=== PATIENT | female | born 1995 | race Caucasian/White ===

== ENCOUNTER 2019-06-09 18:06 | Inpatient (IN) ==
[2019-06-09] MEDS ORDERED: Famotidine 20 MG/2 ML VIAL IVP PRN (18:16)
[2019-06-09] MEDS ORDERED: Naloxone 0.4 MG/ML INJ IVP PRN (18:16)
[2019-06-09] MEDS ORDERED: Metoclopramide 10 MG/2 ML VIAL IVP PRN ×2 (18:16→23:57)
[2019-06-09] MEDS ORDERED: Clindamycin 900 MG/50 ML 900 MG/50 ML IV.SOLN IVPB ONE (19:10)
[2019-06-09] MEDS: Ringers Solution, Lactated 1,000 ML IVC SCH ×2 (19:21→20:14)
[2019-06-09 19:29] LABS: Amphetamine Screen,Urine Negative ng/mL (Cutoff=1000); Barbiturate Screen,Urine Negative ng/mL (Cutoff=200); Basophils % 0.1 %; Benzodiazepines Screen,Urine Negative ng/mL (Cutoff=200); Cannabinoid Screen,Urine Negative ng/mL (Cutoff = 50); Cocaine Screen,Urine Negative ng/mL (Cutoff= 300); Eosinophils # 0.1 K/mcL (0.0-0.6); Eosinophils % 0.5 %; Hematocrit 38.8 % (35.3-44.9); Hemoglobin 12.1 g/dL (11.5-15.4); Immature Granulocytes % 0.5 % (0-4); Lymphocytes # 3.8 K/mcL (0.6-4.6); Lymphocytes % 26.2 %; Mean Corpuscular HGB Conc 31.2 g/dL (31.6-35.5); Mean Corpuscular Hemoglobin 25.1 pg (28.0-33.3); Mean Corpuscular Volume 80.5 fL (83.0-100.0); Mean Platelet Volume 10.7 fL (9.4-12.4); Monocytes % 7.1 %; Neutrophils # 9.5 K/mcL (1.6-8.9); Opiate Screen,Urine Negative ng/mL (Cutoff=300); Phencyclidine Screen,Urine Negative ng/mL (Cutoff=25); Platelet Count 308 K/mcL (140-400); Red Blood Count 4.82 M/mcL (3.82-4.97); Red Cell Distribution Width 14.8 % (11.5-14.5); Segmented Neutrophils % 65.6 %; White Blood Count 14.6 K/mcL (4.3-11.1)
[2019-06-09] MEDS ORDERED: EPHEDrine 50 MG/ML VIAL ONE (19:30)
[2019-06-09] MEDS ORDERED: *HR* OxyCODONE/APAP 5/325 TABLET PO PRN (19:30)
[2019-06-09] MEDS ORDERED: Morphine Sulfate 2 MG/ML SYRINGE IVP PRN (19:30)
[2019-06-09] MEDS ORDERED: *HR* Morphine Sulfate/PF 10 MG/10 ML AMPUL ONE (19:30)
[2019-06-09] MEDS ORDERED: Ibuprofen 400 MG TABLET PO PRN (19:30)
[2019-06-09] MEDS ORDERED: *HR* FentaNYL (PF) 100 MCG/2 ML VIAL ONE (19:30)
[2019-06-09] MEDS ORDERED: Ondansetron 4 MG/2 ML VIAL IVP PRN ×2 (19:30→23:57)
[2019-06-09] MEDS ORDERED: *HR* Oxytocin 10 UNIT/ML VIAL IM ONE (19:30)
[2019-06-09] MEDS ORDERED: *HR* Promethazine 25 MG/ML VIAL IVP PRN (19:32)
[2019-06-09] MEDS ORDERED: Oxytocin 20 units/ LR 1000 mL 20 UNIT/1,000 ML BAG IVC ONE ×2 (20:22→23:24)
[2019-06-09] MEDS ORDERED: Ondansetron 4 MG/2 ML VIAL ONE (21:40)
[2019-06-09] MEDS ORDERED: Acetaminophen IV 1,000 MG/100 ML INFUS..BTL IVPB ONE (22:52)
[2019-06-09] MEDS ORDERED: Ringers Solution, Lactated 1,000 ML IVC SCH (23:57)
[2019-06-09] MEDS ORDERED: Sennosides 8.6 MG TABLET PO PRN (23:57)
[2019-06-09] MEDS ORDERED: Simethicone 80 MG TAB.CHEW PO PRN (23:57)
[2019-06-09] MEDS ORDERED: Oxytocin 20 units/ LR 1000 mL 20 UNIT/1,000 ML BAG IVC SCH (23:57)
[2019-06-09] MEDS ORDERED: Rho Immune Globulin 1,500 UNIT SYRINGE IM ONE (23:57)
[2019-06-10] MEDS: Ibuprofen 600 MG TABLET PO PRN ×2 (06:41→17:26)
[2019-06-10 07:46] LABS: Basophils % 0.2 %; Eosinophils # 0.1 K/mcL (0.0-0.6); Eosinophils % 0.5 %; Hematocrit 31.6 % (35.3-44.9); Immature Granulocytes % 0.2 % (0-4); Lymphocytes # 3.4 K/mcL (0.6-4.6); Lymphocytes % 26.1 %; Mean Corpuscular HGB Conc 30.4 g/dL (31.6-35.5); Mean Corpuscular Hemoglobin 25.2 pg (28.0-33.3); Mean Corpuscular Volume 82.9 fL (83.0-100.0); Mean Platelet Volume 10.8 fL (9.4-12.4); Monocytes # 0.9 K/mcL (0.0-1.3); Monocytes % 6.9 %; Neutrophils # 8.7 K/mcL (1.6-8.9); Platelet Count 232 K/mcL (140-400); Red Blood Count 3.81 M/mcL (3.82-4.97); Red Cell Distribution Width 14.8 % (11.5-14.5); Segmented Neutrophils % 66.1 %; White Blood Count 13.1 K/mcL (4.3-11.1)
[2019-06-10 07:47] LABS: Hemoglobin 9.6 g/dL (11.5-15.4)
[2019-06-10 08:58] LABS: eGFR For African Americans > 60 (> 60); eGFR For Non-African Americans > 60 (> 60)
[2019-06-10] MEDS: Prenatal Vit/FA 1 EACH TABLET PO SCH (09:24)
[2019-06-10] MEDS: *HR* OxyCODONE/APAP 5/325 TABLET PO PRN ×3 (10:17→21:19)
[2019-06-11] MEDS: Ibuprofen 600 MG TABLET PO PRN ×2 (02:18→08:06)
[2019-06-11] MEDS: *HR* OxyCODONE/APAP 5/325 TABLET PO PRN ×2 (06:17→12:44)
[2019-06-11 07:51] VITALS: BP 115/77
[2019-06-11] MEDS: Prenatal Vit/FA 1 EACH TABLET PO SCH (07:58)
== END 2019-06-11 16:44 | disposition home or self-care (01) | DRG 788 ==
LOC: 1NENULAB 18:06 → 1NENUOBS 23:54
PROVIDERS: ADMIT Obstetrics & Gynecology; ATTEND Obstetrics & Gynecology

== ENCOUNTER 2020-09-09 12:58 | Observation (INO) ==
[2020-09-09] MEDS ORDERED: Naloxone 0.4 MG/ML INJ IVP PRN (13:24)
[2020-09-09] MEDS ORDERED: *HR* HYDROmorphone 2 MG/ML SYRINGE IVP PRN (13:25)
[2020-09-09] MEDS: Ringers Solution, Lactated 1,000 ML IVC SCH ×2 (14:06→22:43)
[2020-09-09 14:18] LABS: Basophils % 0.3 %; Eosinophils # 0.3 K/mcL (0.0-0.6); Eosinophils % 2.4 %; Hematocrit 40.6 % (35.3-44.9); Hemoglobin 12.5 g/dL (11.5-15.4); Immature Granulocytes % 0.3 % (0-4); Lymphocytes # 3.4 K/mcL (0.6-4.6); Lymphocytes % 30.1 %; Mean Corpuscular HGB Conc 30.8 g/dL (31.6-35.5); Mean Corpuscular Hemoglobin 25.2 pg (28.0-33.3); Mean Corpuscular Volume 81.9 fL (83.0-100.0); Mean Platelet Volume 9.2 fL (9.4-12.4); Monocytes # 1.2 K/mcL (0.0-1.3); Monocytes % 10.1 %; Neutrophils # 6.5 K/mcL (1.6-8.9); Platelet Count 377 K/mcL (140-400); Red Blood Count 4.96 M/mcL (3.82-4.97); Red Cell Distribution Width 14.6 % (11.5-14.5); Segmented Neutrophils % 56.8 %; White Blood Count 11.4 K/mcL (4.3-11.1)
[2020-09-09] MEDS: Ondansetron 4 MG/2 ML VIAL IVP PRN ×2 (16:03→22:36)
[2020-09-09 19:44] LABS: Amphetamine Screen,Urine Negative ng/mL (Cutoff=1000); Barbiturate Screen,Urine Negative ng/mL (Cutoff=200); Benzodiazepines Screen,Urine Negative ng/mL (Cutoff=200); Cannabinoid Screen,Urine Negative ng/mL (Cutoff = 50); Cocaine Screen,Urine Negative ng/mL (Cutoff= 300); Opiate Screen,Urine Positive ng/mL (Cutoff=300); Phencyclidine Screen,Urine Negative ng/mL (Cutoff=25)
[2020-09-09] MEDS ORDERED: *HR* Meperidine 50 MG/ML SYRINGE IVP PRN (21:25)
[2020-09-10] MEDS ORDERED: Ondansetron 4 MG/2 ML VIAL IVP PRN (04:44)
[2020-09-10] MEDS ORDERED: Ondansetron 4 MG/2 ML VIAL ONE (04:52)
[2020-09-10] MEDS ORDERED: *HR* FentaNYL (PF) 100 MCG/2 ML VIAL ONE ×3 (04:52→06:26)
[2020-09-10] MEDS ORDERED: Neostigmine Methylsulfate 3 MG/3 ML SYRINGE ONE (04:52)
[2020-09-10] MEDS ORDERED: *HR* Propofol 200 MG/20 ML VIAL IVP ONE ×2 (04:52→05:40)
[2020-09-10] MEDS ORDERED: *HR* Rocuronium Bromide 50 MG/5 ML VIAL ONE ×2 (04:52→05:40)
[2020-09-10] MEDS ORDERED: Clindamycin 900 MG/50 ML 900 MG/50 ML IV.SOLN IVPB ONE (05:32)
[2020-09-10] MEDS: *HR* HYDROmorphone PF 0.5 MG/0.5 ML SYRINGE IVP PRN ×2 (07:21→07:30)
[2020-09-10] MEDS: Ondansetron 4 MG/2 ML VIAL IVP PRN (08:32)
[2020-09-10] MEDS ORDERED: *HR* OxyCODONE/APAP 5/325 TABLET PO ONE (08:32)
[2020-09-10 12:41] VITALS: BP 106/68; PULSE 86; TEMP 98.2; O2SAT 95
== END 2020-09-10 14:38 | disposition home or self-care (01) ==
LOC: 1NENUOBS
PROVIDERS: ADMIT Obstetrics & Gynecology; ATTEND Obstetrics & Gynecology

== ENCOUNTER 2021-06-19 09:14 | Inpatient (IN) ==
[2021-06-19] MEDS ORDERED: Lidocaine -MPF 2% 5 ML VIAL ONE ×2 (10:37→12:58)
[2021-06-19] MEDS ORDERED: Metoclopramide 10 MG/2 ML VIAL IVP PRN ×2 (10:42→16:45)
[2021-06-19] MEDS ORDERED: Famotidine 20 MG/2 ML VIAL IVP PRN (10:42)
[2021-06-19] MEDS ORDERED: Azithromycin 500 MG in 0.9 % Sodium Chloride 250 ML IVPB PRN (10:42)
[2021-06-19] MEDS ORDERED: Naloxone 0.4 MG/ML INJ IVP PRN ×2 (10:42→16:45)
[2021-06-19] MEDS ORDERED: Ringers Solution, Lactated 1,000 ML IVC SCH (10:45)
[2021-06-19 11:16] LABS: Basophils % 0.2 %; Eosinophils # 0.1 K/mcL (0.0-0.6); Eosinophils % 1.1 %; Hematocrit 36.1 % (35.3-44.9); Hemoglobin 11.5 g/dL (11.5-15.4); Immature Granulocytes % 0.4 % (0-4); Lymphocytes % 24.3 %; Mean Corpuscular HGB Conc 31.9 g/dL (31.6-35.5); Mean Corpuscular Hemoglobin 23.7 pg (28.0-33.3); Mean Corpuscular Volume 74.4 fL (83.0-100.0); Mean Platelet Volume 10.6 fL (9.4-12.4); Monocytes # 1.1 K/mcL (0.0-1.3); Monocytes % 8.7 %; Neutrophils # 8.1 K/mcL (1.6-8.9); Platelet Count 333 K/mcL (140-400); Red Blood Count 4.85 M/mcL (3.82-4.97); Red Cell Distribution Width 17.3 % (11.5-14.5); Segmented Neutrophils % 65.3 %; White Blood Count 12.3 K/mcL (4.3-11.1)
[2021-06-19 11:39] LABS: Creatinine,Urine 161 mg/dL; Protein/Creatinine Ratio,Urine 0.18 mg/mg (0.00-0.20)
[2021-06-19 11:45] LABS: Alanine Aminotransferase 8 Units/L (7-52); Aspartate Amino Transferase 11 Units/L (13-39); BUN/Creatinine Ratio 20 (6-26); Blood Urea Nitrogen 9 mg/dL (6-20); Lactate Dehydrogenase 116 Units/L (140-271); Uric Acid 4.1 mg/dL (2.3-7.6); eGFR For African Americans > 60 (> 60); eGFR For Non-African Americans > 60 (> 60)
[2021-06-19] MEDS ORDERED: Oxytocin 30 UNIT/503 ML BAG IVC ONE (12:14)
[2021-06-19] MEDS ORDERED: CeFAZolin 2,000 MG/120 ML BAG IVPB ONE (12:33)
[2021-06-19] MEDS ORDERED: Clindamycin 900 MG/50 ML 900 MG/50 ML IV.SOLN IVPB ONE (12:38)
[2021-06-19] MEDS ORDERED: Promethazine 6.25 MG in Water for inj. (sterile) 20 ML IVPB PRN (12:48)
[2021-06-19] MEDS ORDERED: Ondansetron 4 MG/2 ML VIAL IVP PRN ×2 (12:48→16:45)
[2021-06-19] MEDS ORDERED: *HR* HYDROmorphone (PF) 1 MG/ML SYRINGE IVP PRN (12:48)
[2021-06-19] MEDS ORDERED: *HR* FentaNYL (PF) 100 MCG/2 ML VIAL ONE (12:56)
[2021-06-19] MEDS ORDERED: *HR* Propofol 200 MG/20 ML VIAL IVP ONE (12:56)
[2021-06-19] MEDS ORDERED: *HR* Succinylcholine 200 MG/10 ML VIAL IVP ONE (12:57)
[2021-06-19] MEDS ORDERED: Acetaminophen IV 1,000 MG/100 ML BAG IVPB ONE (13:24)
[2021-06-19] MEDS ORDERED: *HR* Rocuronium Bromide 50 MG/5 ML VIAL ONE (13:24)
[2021-06-19] MEDS ORDERED: Ondansetron 4 MG/2 ML VIAL ONE (13:24)
[2021-06-19] MEDS ORDERED: Ketorolac 30 MG/ML VIAL ONE (13:24)
[2021-06-19] MEDS ORDERED: *HR* HYDROMORPHONE 2 MG/ML VIAL ONE (13:39)
[2021-06-19] MEDS ORDERED: Ringers Solution, Lactated 1,000 ML ONE (13:59)
[2021-06-19] MEDS ORDERED: OXYTOCIN/RINGERS LACTATE 10 UNIT/166.6 ML BAG IVC ONE (16:45)
[2021-06-19] MEDS ORDERED: Rho Immune Globulin 1,500 UNIT SYRINGE IM ONE (16:45)
[2021-06-19] MEDS: Ibuprofen 600 MG TABLET PO SCH ×2 (17:00→22:44)
[2021-06-19 17:29] LABS: Amphetamine Screen,Urine Negative ng/mL (Cutoff=1000); Barbiturate Screen,Urine Negative ng/mL (Cutoff=200); Benzodiazepines Screen,Urine Negative ng/mL (Cutoff=200); Cannabinoid Screen,Urine Negative ng/mL (Cutoff = 50); Cocaine Screen,Urine Negative ng/mL (Cutoff= 300); Opiate Screen,Urine Negative ng/mL (Cutoff=300); Phencyclidine Screen,Urine Negative ng/mL (Cutoff=25)
[2021-06-19] MEDS: *HR* OxyCODONE Immed Rel 5 MG TABLET PO PRN ×2 (17:46→23:21)
[2021-06-19] MEDS: Ringers Solution, Lactated 1,000 ML IVC SCH (18:34)
[2021-06-19] MEDS: Acetaminophen 325 MG TABLET PO SCH (20:34)
[2021-06-20] MEDS: Acetaminophen 325 MG TABLET PO SCH ×4 (02:59→18:16)
[2021-06-20 04:14] LABS: Basophils % 0.2 %; Eosinophils % 0.1 %; Hematocrit 28.7 % (35.3-44.9); Hemoglobin 8.9 g/dL (11.5-15.4); Immature Granulocytes % 0.4 % (0-4); Mean Corpuscular Hemoglobin 23.6 pg (28.0-33.3); Mean Corpuscular Volume 76.1 fL (83.0-100.0); Mean Platelet Volume 10.4 fL (9.4-12.4); Monocytes # 1.4 K/mcL (0.0-1.3); Monocytes % 8.6 %; Neutrophils # 12.2 K/mcL (1.6-8.9); Platelet Count 308 K/mcL (140-400); Red Blood Count 3.77 M/mcL (3.82-4.97); Red Cell Distribution Width 17.2 % (11.5-14.5); Segmented Neutrophils % 72.7 %; White Blood Count 16.8 K/mcL (4.3-11.1)
[2021-06-20] MEDS: Ibuprofen 600 MG TABLET PO SCH ×3 (05:20→18:16)
[2021-06-20] MEDS: *HR* OxyCODONE Immed Rel 5 MG TABLET PO PRN ×4 (05:31→20:56)
[2021-06-20] MEDS: Prenatal Vit/FA 1 EACH TABLET PO SCH (09:36)
[2021-06-20] MEDS: Ringers Solution, Lactated 1,000 ML IVC SCH (09:38)
[2021-06-20] MEDS: Simethicone 80 MG TAB.CHEW PO PRN (09:39)
[2021-06-20] MEDS: FLUoxetine 20 MG CAPSULE PO SCH (09:39)
[2021-06-21] MEDS: Simethicone 80 MG TAB.CHEW PO PRN (00:05)
[2021-06-21] MEDS: Ibuprofen 600 MG TABLET PO SCH ×2 (00:05→09:12)
[2021-06-21] MEDS: Acetaminophen 325 MG TABLET PO SCH ×2 (00:05→09:12)
[2021-06-21] MEDS: *HR* OxyCODONE Immed Rel 5 MG TABLET PO PRN ×2 (02:06→06:16)
[2021-06-21 04:08] VITALS: O2SAT 98
[2021-06-21 07:10] VITALS: BP 112/71; PULSE 85; TEMP 98.5
[2021-06-21] MEDS: Prenatal Vit/FA 1 EACH TABLET PO SCH (09:12)
[2021-06-21] MEDS: FLUoxetine 20 MG CAPSULE PO SCH (09:12)
== END 2021-06-21 12:46 | disposition home or self-care (01) | DRG 539 ==
LOC: 1NENULAB 09:14 → 1NENUOBS 16:28
PROVIDERS: ADMIT Obstetrics & Gynecology; ATTEND Obstetrics & Gynecology